=== PATIENT | male | born 2000 | race Caucasian/White ===

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

== ENCOUNTER 2019-10-31 09:52 | Emergency (ER) | payer OTHER ==
[2019-10-31 10:25] VITALS: BMI 16.2
[2019-10-31] MEDS ORDERED: KETOROLAC TROMETHAMINE 30 MG/1 ML VIAL IM ONE (10:47)
[2019-10-31] MEDS ORDERED: KETOROLAC TROMETHAMINE 30 MG/1 ML VIAL ONE (10:48)
--- NOTE | 2019-10-31 11:04 | PDOC ---
History of Present Illness - General Chief Complaint: Cold Symptoms Stated Complaint: PAIN Time Seen by Provider: 10/31/19 10:38 History Source: Patient, Parent(s) - History of Present Illness Timing/Duration: reports: other Past History - Past Medical History Allergies/Adverse Reactions: Allergies Allergy/AdvReac Type Severity Reaction Status Date / Time No Known Allergies Allergy Verified 10/31/19 10:19 Home Medications: Ambulatory Orders Naproxen 500 mg PO BID #20 tablet 10/31/19 Oseltamivir Phosphate [Tamiflu] 75 mg PO BID #10 capsule 10/31/19 COPD: No - Immunization History Td Vaccination: Yes TDAP Vaccination: Yes Immunization Up to Date: Yes - Psycho Social/Smoking Cessation Hx Smoking Status: No Smoking History: Never smoked Have you smoked in the past 12 months: No Number of Cigarettes Smoked Daily: 0 Hx Alcohol Use: No Drug/Substance Use Hx: No Substance Use Type: None Review of Systems - Review of Systems Constitutional: Yes: Chills, Fever, Malaise HEENTM: Yes: Throat Pain. No: Ear Pain Respiratory: Yes: Cough. No: Shortness of Breath Musculoskeletal: Yes: Back Pain Neurological: No: Numbness, Tingling, Weakness *Physical Exam - Vital Signs Last Vital Signs Temp Pulse Resp BP Pulse Ox 101.2 F H 119 H 18 108/60 97 10/31/19 10:20 10/31/19 10:20 10/31/19 10:20 10/31/19 10:20 10/31/19 10:20 - Physical Exam General Appearance: Yes: Appropriately Dressed, Mild Distress HEENT: positive: Normal ENT Inspection, Normal Voice, TMs Normal, Pharynx Normal. negative: Scleral Icterus (R), Scleral Icterus (L) Neck: positive: Supple. negative: Lymphadenopathy (R), Lymphadenopathy (L) Respiratory/Chest: negative: Respiratory Distress Musculoskeletal: negative: Vertebral Tenderness Integumentary: positive: Dry, Warm Neurologic: positive: Fully Oriented, Alert, Normal Mood/Affect ED Treatment Course - Medications Given in the ED: ED Medications Discontinued Medications Generic Name Dose Route Start Last Admin Trade Name Freq PRN Reason Stop Dose Admin Ketorolac Tromethamine 30 mg 10/31/19 10:47 10/31/19 10:51 Toradol Injection - IM 10/31/19 10:48 30 mg ONCE ONE Administration Medical Decision Making - Medical Decision Making 10/31/19 10:58 19-year-old male, history of chronic lower back pain, here with multiple complaints including worsening of his lower back pain over the past few days. Taking Tylenol with no relief. No acute sensory changes or lower extremity weakness. 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 Also complaining of cough with sore throat and fever this a.m. 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 Vital improved with meds (states BP runs low). Dc with Tamiflu and supportive treatment. Ortho spine referral given for patient's chronic back pain Discharge - Discharge Information Problems reviewed: Yes Clinical Impression/Diagnosis: Influenza Chronic back pain Qualifiers: Back pain location: low back pain Back pain laterality: unspecified Sciatica presence: without sciatica Qualified Code(s): M54.5 - Low back pain Condition: Improved Disposition: HOME - Additional Discharge Information Prescriptions: Naproxen 500 mg PO BID #20 tablet Oseltamivir Phosphate [Tamiflu] 75 mg PO BID #10 capsule - Follow up/Referral Referrals: Matt Montes MD [Primary Care Provider] - Triston Almanza MD [Staff Physician] - - Patient Discharge Instructions Patient Printed Discharge Instructions: Managing Chronic Low Back Pain, Influenza Additional Instructions: You have the flu. Take Tamiflu as directed. Take Motrin or Tylenol as needed for pain and or fever. Please follow-up with [facility] for further evaluation for your chronic back pain - Post Discharge Activity Work/Back to School Note: Back to Work, Back to School
[2019-10-31 13:30] VITALS: BP 93/43; PULSE 85; TEMP 98
== END 2019-10-31 13:35 | disposition home or self-care (01) ==
LOC: JERFT 09:52
PROC: 3E0233Z Introduction of Anti-inflammatory into Muscle, Percutaneous Approach (ICD-10-PCS; principal; 2019-10-31)
DX: M54.5 Low back pain (principal); G89.29 Other chronic pain
CPT/HCPCS: 87804; 96372; 99283-25